=== PATIENT | male | born 1955 | race Caucasian/White ===

== ENCOUNTER 2020-10-05 19:44 | Emergency (ER) | payer BC, MEDICARE ==
[2020-10-05] MEDS ORDERED: DIPH/PERTUSS(ACELL)/TETANUS VAC/PF 0.5 ML SYR (>=10YO) IM ONE ×2 (20:08→23:30)
[2020-10-05] MEDS ORDERED: AMOXICILLIN TR/POT CLAVULANATE 875-125 MG TAB PO ONE ×2 (20:08→23:30)
--- NOTE | 2020-10-05 20:13 | ER Document Report ---
ED Medical Screen (RME) - General Chief Complaint: Hand Injury Stated Complaint: HAND INJURY, LEG INJURY, DOG BITE Time Seen by Provider: 10/05/20 20:06 Mode of Arrival: Wheelchair Information source: Patient Notes: Patient is a 65-year-old male who came to emergency room planing having a dog bite to his left hand and right calf. Patient states these were his own dogs and they are up-to-date on her shots. He attempted to break up a fight. Patient states that they bit down on his left hand and it would not quit bleeding so he turned to get it and used a pen to tighten it. He states now he can feel his fingers. He also got bit in the back of the right calf. Physical examination: Patient is a well-nourished well-developed 5-year-old male was no apparent distress but obvious pain and discomfort. Cardiac: Patient has a rate of 56 bpm on monitor no murmurs heard. Lungs: Bilateral breath sounds clear to auscultation no rhonchi rales or wheeze. Left upper extremity shows the left hand to be wrapped exceptionally tight with rag and then tightened down with a pen in order to stop bleeding. After review moving the pen and cutting off the rags patient has a mangled top of the left hand in triage very difficult to tell exactly what is cut although there appears to be a extensor tendon hanging out of the fourth metacarpal area. Patient now has some cap refill in the nailbeds of the fingers that hand after releasing the tourniquet. Bleeding does not appear to be diffuse at this time only minimal trickle. Examination patient's right leg neck shows there is one gouty brody in the right posterior portion of the calf. Patient appears to have full range of motion of the ankle and foot on initial examination. I have greeted and performed a rapid initial assessment of this patient. A comprehensive ED assessment and evaluation of the patient, analysis of test results and completion of the medical decision making process will be conducted by additional ED providers. Dictation of this chart was performed using voice recognition software; therefore, there may be some unintended grammatical errors. Physical Exam - Vital signs Vitals: Temp Pulse Resp BP Pulse Ox 97.5 F 56 L 18 92/56 L 99 10/05/20 19:52 10/05/20 19:52 10/05/20 19:52 10/05/20 19:52 10/05/20 19:52 Course - Vital Signs Vital signs: Temp Pulse Resp BP Pulse Ox 97.5 F 56 L 18 92/56 L 99 10/05/20 19:52 10/05/20 19:52 10/05/20 19:52 10/05/20 19:52 10/05/20 19:52
--- NOTE | 2020-10-05 21:52 | RADIOLOGY REPORT (SQ) ---
EXAM DESCRIPTION: XR TIBIA FIBULA 2 VIEWS COMPLETED DATE/TME: 10/05/2020 21:02 CLINICAL HISTORY: 65 years, Male, dog bite COMPARISON: None. NUMBER OF VIEWS: 2 TECHNIQUE: Two views of the right tibia and fibula were obtained LIMITATIONS: None. FINDINGS: There is no fracture or dislocation. No opaque foreign body is seen. IMPRESSION: No acute abnormality as above. copyright 2010 [employer]- All Rights Reserved
--- NOTE | 2020-10-05 22:32 | RADIOLOGY REPORT (SQ) ---
EXAM DESCRIPTION: XR HAND 3 OR MORE VIEWS COMPLETED DATE/TME: 10/05/2020 21:02 CLINICAL HISTORY: 65 years, Male, dog bite COMPARISON: None. NUMBER OF VIEWS: 3 TECHNIQUE: Three views of the right hand were obtained. LIMITATIONS: None. FINDINGS: There is apparent bandaging material and there is some apparent soft tissue gas. No opaque foreign body is otherwise seen. There is no fracture or dislocation. 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 IMPRESSION: Evidence of soft tissue injury as above. No fracture or dislocation. copyright 2010 [employer]- All Rights Reserved
[2020-10-06] MEDS ORDERED: LIDOCAINE 1%/EPINEPHRINE INJ 20 ML VIAL INJ ONE (02:46)
--- NOTE | 2020-10-06 02:48 | ER Document Report ---
ED Animal Bite - General Chief Complaint: Dog Bite Stated Complaint: HAND INJURY, LEG INJURY, DOG BITE Time Seen by Provider: 10/05/20 20:06 Mode of Arrival: Wheelchair Notes: Patient is a 65-year-old male that comes emergency department for chief complaint of a dog bite to the left hand and to the right calf. Patient states that he was trying to break up his 2 dogs that were fighting when he was bit by the smaller dog. Patient is not up-to-date on his tetanus. Dogs are up-to-date on all vaccinations. Patient is not a diabetic, he is not on a blood thinner. He denies any other complaints. - Related Data Allergies/Adverse Reactions: No Known Allergies Allergy (Unverified 10/05/20 23:05) Past Medical History - General Information source: Patient - Social History Smoking Status: Unknown if Ever Smoked Drug Abuse: None Lives with: Family Family History: Reviewed & Not Pertinent - Immunizations Immunizations up to date: No Hx Diphtheria, Pertussis, Tetanus Vaccination: Yes Review of Systems - Review of Systems Constitutional: No symptoms reported EENT: No symptoms reported Cardiovascular: No symptoms reported Respiratory: No symptoms reported Gastrointestinal: No symptoms reported Genitourinary: No symptoms reported Male Genitourinary: No symptoms reported Musculoskeletal: See HPI Skin: See HPI Hematologic/Lymphatic: No symptoms reported Neurological/Psychological: No symptoms reported Physical Exam - Vital signs Vitals: Temp Pulse Resp BP Pulse Ox 97.5 F 56 L 18 92/56 L 99 10/05/20 19:52 10/05/20 19:52 10/05/20 19:52 10/05/20 19:52 10/05/20 19:52 - Notes Notes: GENERAL: Alert, interacts well. No acute distress. HEAD: Normocephalic, atraumatic. EYES: Pupils equal, round, and reactive to light. Extraocular movements intact. ENT: Oral mucosa moist, tongue midline. Oropharynx unremarkable. Airway patent. Nares patent, sinuses non-tender, ear canals unremarkable, TM's intact. NECK: Full range of motion. Supple. Trachea midline. No lymphadenopathy. LUNGS: Clear to auscultation bilaterally, no wheezes, rales, or rhonchi. No respiratory distress. Non-tender chest wall. HEART: Regular rate and rhythm. No murmur ABDOMEN: Soft, non-tender. Non-distended. Bowel sounds present in all 4 quadrants. GENITOURINARY: Deferred EXTREMITIES: There is a approximately 3 cm gaping horizontal linear laceration over the mid right calf into the subcutaneous tissue. Normal distal neurovascular exam below this, normal range of motion of the ankle, unremarkable lower extremities otherwise. There is a wound over the dorsum of the left hand that is approximately 3 cm in length, irregular, over the fourth MCP, full- thickness. I can visualize the tendon easily and there appears to be injury of the tendon sheath. There is normal strength against resistance in flexion and extension with normal range of motion of all fingers. Normal capillary refill and sensation. Normal upper extremity exam otherwise. BACK: no cervical, thoracic, lumbar midline tenderness. No saddle anesthesia, normal distal neurovascular exam. Moves all extremities in full range of motion. NEUROLOGICAL: Alert and oriented x3. Normal speech. Cranial nerves II through XII grossly intact. Strength 5/5 in all extremities. PSYCH: Normal affect, normal mood. SKIN: Warm, dry, normal turgor. No rashes or lesions noted. Course - Re-evaluation Re-evalutation: X-rays show soft tissue injury but no foreign body or fracture. Patient has a gaping laceration over the right calf with no neurovascular deficits or concerning injuries, this was cleaned thoroughly and then approximated but not closed. This was dressed. There is also a gaping laceration over the dorsum of the left hand with injury of the tendon sheath although the tendon appears intact. Normal distal neurovascular exam, normal hand exam otherwise. 10/06/20 03:[address] Dennis, discussed the wound and injury in detail. He recommends 2-3 stitches to generally approximate but recommends we do not close this, patient is to wash the area thoroughly 3 times a day for at least a minute, he can follow-up in the office within the next several days to a week for recheck, he is to be on Augmentin in the meantime. Laceration over the hand was thoroughly irrigated and approximated, dressed. Placed on antibiotics. Discussed close follow-up with orthopedics. - Vital Signs Vital signs: Temp Pulse Resp BP Pulse Ox 97.9 F 89 16 173/104 H 97 10/06/20 04:33 10/06/20 04:33 10/06/20 04:33 10/06/20 04:33 10/06/20 04:33 Procedures - Laceration/Wound Repair right calf Wound length (cm): 3 Wound's Depth, Shape: Linear Laceration pre-procedure: Sterile PPE donned, Sterile drapes applied, Shur-Clens applied Anesthetic type: 1% Lidocaine w/epi Volume Anesthetic (mLs): 4 Wound explored: Clean, No foreign body removed Irrigated w/ Saline (mLs): 50 Wound Repaired With: Sutures Suture Size/Type: 4:0, Nylon Number of Sutures: 2 - vertical mattress Layer Closure?: No Post-procedure wound care: Sterile dressing applied Post-procedure NV exam normal: Yes Complications: No left dorsal hand Wound length (cm): 4 Wound's Depth, Shape: Irregular, Flap Wound explored: Clean, No foreign body removed Irrigated w/ Saline (mLs): 1,000 Wound Repaired With: Sutures Suture Size/Type: 4:0, Nylon Number of Sutures: 3 Layer Closure?: No Post-procedure wound care: Sterile dressing applied Post-procedure NV exam normal: Yes Complications: No Discharge - Discharge Clinical Impression: Laceration of right calf Dog bite Qualifiers: Encounter type: initial encounter Qualified Code(s): W54.0XXA - Bitten by dog, initial encounter Laceration of left hand Qualifiers: Encounter type: initial encounter Foreign body presence: without foreign body Qualified Code(s): S61.412A - Laceration without foreign body of left hand, initial encounter Condition: Stable Disposition: HOME, SELF-CARE Additional Instructions: Your x-rays do not show any concerning findings. Your hand wound is consistent with injury of the tendon sheath but the tendon does not appear to be injured. I spoke with Dr. Dennis, orthopedic surgeon, the wound has been thoroughly irrigated and approximated (but could not be closed due to infection risk). Recommendation is to wash the hand wounds 3 times daily for at least 1 minute, then reapply topical antibiotic dressing. Please be seen in the orthopedic clinic for recheck and additional management, see office referral. Call on Thursday to be seen in close follow-up. Take the antibiotic as prescribed to completion, while you are taking this I recommend you take [id number] probiotics to avoid diarrhea. Return if you worsen including developing spreading redness or pain, discolored discharge, fever/chills, swelling, or any other concerning symptoms. Prescriptions: Amoxicillin/Potassium Clav [Augmentin [id number] Tablet] 1 tab PO BID 7 Days #14 tablet Forms: Return to Work Referrals: ERUM SHELBY DO [ACTIVE STAFF] - 10/08/20
[2020-10-06] MEDS ORDERED: HYDROCODONE/ACETAMINOPHEN 5-325 MG (6 TAB/ER DISP) PO PRN (04:11)
[2020-10-06 04:36] VITALS: BP 173/104
== END 2020-10-06 04:20 | disposition home or self-care (01) ==
LOC: ER 19:44
DX: S61.452A Open bite of left hand, initial encounter (principal); S81.851A Open bite, right lower leg, initial encounter; W54.0XXA Bitten by dog, initial encounter
CPT/HCPCS: 99284; 90471; 73130; 73590; 90715; 12002; J3490 ×2